=== PATIENT | female | born 1935 | race Caucasian/White ===

== ENCOUNTER 2018-06-24 11:04 | Outpatient (CLI) | payer MEDICARE ==
[~2018-06-24 11:04] MED LIST: ACET-812 PO; CARV3.12 PO; LACT1CAP73 PO; LEVO100T PO; LORA0.5T PO; OMEP20CA4 PO
== END 2018-06-24 23:59 | disposition home or self-care (01) ==
LOC: VAS 11:04
PROVIDERS: ATTEND Family Medicine
DX: M79.662 Pain in left lower leg (principal); M79.89 Other specified soft tissue disorders; I10 Essential (primary) hypertension; Z79.899 Other long term (current) drug therapy; Z87.891 Personal history of nicotine dependence; Z91.040 Latex allergy status; Z88.2 Allergy status to sulfonamides; Z90.710 Acquired absence of both cervix and uterus; Z96.653 Presence of artificial knee joint, bilateral
CPT/HCPCS: 93971

== ENCOUNTER 2020-08-09 15:15 | Outpatient (CLI) | payer MEDICARE | END 2020-08-09 23:59 | disposition home or self-care (01) | LOC: VAS 15:15 | PROVIDERS: ATTEND Family Medicine | DX: I82.452 Acute embolism and thrombosis of left peroneal vein (principal) | CPT/HCPCS: 93970 ==

== ENCOUNTER 2021-11-13 10:56 | Outpatient (CLI) | payer MEDICARE | END 2021-11-13 23:59 | disposition home or self-care (01) | LOC: VAS 10:56 | PROVIDERS: ATTEND Anesthesiology Pain Medicine | DX: S32.020A Wedge compression fracture of second lumbar vertebra, initial encounter for closed fracture (principal); M79.605 Pain in left leg; X58.XXXA Exposure to other specified factors, initial encounter; Y93.89 Activity, other specified; Y92.89 Other specified places as the place of occurrence of the external cause; Y99.8 Other external cause status; Z86.718 Personal history of other venous thrombosis and embolism; Z74.09 Other reduced mobility | CPT/HCPCS: 93970 ==

== ENCOUNTER 2022-10-16 08:34 | Emergency (ER) | payer MEDICARE ==
[~2022-10-16] VITALS: Ht 168.9 cm; Wt 76.6 kg
[2022-10-16 08:59] LABS: BASOPHILS % (AUTO) 0.3 % (0-1); EOSINOPHILS # (AUTO) 0.1 X10'3 (0-0.9); HEMATOCRIT 43.8 % (35.0-45.0); HEMOGLOBIN 14.3 g/dl (12.0-16.0); LYMPHOCYTES # (AUTO) 1.7 X10'3 (1.1-4.8); LYMPHOCYTES % (AUTO) 18.6 % (21-51); MEAN CORPUSCULAR HEMOGLOBIN 32.6 PG (27.0-31.0); MEAN CORPUSCULAR HGB CONC 32.5 g/dL (33.0-36.5); MEAN CORPUSCULAR VOLUME 100.1 FL (78-98); MEAN PLATELET VOLUME 7.3 FL (7.4-10.4); MONOCYTES # (AUTO) 0.7 X10'3 (0-0.9); MONOCYTES % (AUTO) 7.6 % (2-12); NEUTROPHILS # (AUTO) 6.4 X10'3 (1.8-7.7); NEUTROPHILS % (AUTO) 72.5 % (42-75); PLATELET COUNT 225 X10'3 (140-440); RED BLOOD COUNT 4.37 X10'6 (4.20-5.60); WHITE BLOOD COUNT 8.9 X10'3 (4.5-11.0)
[2022-10-16] MEDS ORDERED: normal saline 1000ML IV soln IV ONE (09:05)
[2022-10-16 09:35] LABS: ALANINE AMINOTRANSFERASE 16 U/L (12-78); ALKALINE PHOSPHATASE 59 IU/L (46-116); ASPARTATE AMINO TRANSFERASE 28 U/L (10-37); BILIRUBIN,TOTAL 0.6 MG/DL (0.1-1.0); BLOOD UREA NITROGEN 13 MG/DL (7-18); CALCIUM 9.1 MG/DL (8.5-10.1); CREATINE KINASE 207 U/L (26-192); CREATININE 0.93 MG/DL (0.40-0.90); ETHANOL < 0.010 GM/DL (0.0-0.010); GLUCOSE 145 MG/DL (70-104); TOTAL CARBON DIOXIDE 24.1 MMOL/L (24-32); eGFR 57 ML/MIN
[2022-10-16] MEDS ORDERED: metoprolol tartrate 1mg/ml inj IV ONE (09:55)
[2022-10-16] MEDS ORDERED: CefTRIAXone 2gm/D5W 50ml BAG 50 ML IV ONE (10:10)
[2022-10-16 10:26] LABS: CLARITY,URINE SLIGHTLY CLOUDY (Clear); COLOR,URINE STRAW (Yellow); GLUCOSE, URINE NEGATIVE (Neg); KETONES,URINE NEGATIVE (Neg); LEUKOCYTE ESTERASE ,URINE TRACE (Neg); NITRITES, URINE NEGATIVE (Neg); OCCULT BLOOD,URINE TRACE-INTACT (Neg); PROTEIN,URINE 30 mg/dl (Neg); UROBILINOGEN,URINE 0.2 E.U/dL (0.2-1.0)
[2022-10-16 10:37] LABS: UA COLLECTION TYPE STRAIGHT CATH
[2022-10-16 10:46] LABS: BACTERIA,URINE 3+ /HPF (Neg); SQUAMOUS EPITHELIAL CELL,UR NONE SEEN /LPF (FEW); WBC,URINE 0-4 /HPF (0-4)
[2022-10-16] MEDS ORDERED: acetaminophen 325mg tablet PO ONE (11:15)
[2022-10-16 11:33] LABS: ANION GAP 13 (8-16); CHLORIDE 89 MMOL/L (99-107); POTASSIUM 3.9 MMOL/L (3.5-5.1); SODIUM 126 MMOL/L (135-145)
[2022-10-16] MEDS ORDERED: ibuprofen tablet 400 MG TABLET PO ONE (12:10)
[2022-10-16] MEDS ORDERED: cloNIDine 0.1 mg tablet PO ONE (12:12)
[2022-10-16] MEDS ORDERED: ondansetron/PF 4mg/2ml inj IV ONE (12:30)
[2022-10-16] MEDS ORDERED: morphine 4 MG/ML inj SYRINge IV PRN (12:30)
[2022-10-16] MEDS ORDERED: tamsulosin 0.4mg capsule PO STA (15:14)
[2022-10-16 15:30] VITALS: BP 158/78
[2022-10-16] MEDS ORDERED: CEPH250T PO (16:39)
[2022-10-16] MEDS ORDERED: FLO0.4C PO (16:39)
[2022-10-16] MEDS ORDERED: ONDA4TAB12 PO (16:39)
[2022-10-16] MEDS ORDERED: TRAM50TA2 PO (16:39)
== END 2022-10-16 17:48 | disposition home or self-care (01) ==
LOC: ER 08:35
DX: N20.0 Calculus of kidney (principal); E86.0 Dehydration; R41.82 Altered mental status, unspecified; E87.20 Acidosis, unspecified; I10 Essential (primary) hypertension; Z98.890 Other specified postprocedural states; Z88.2 Allergy status to sulfonamides; Z91.040 Latex allergy status; Z79.2 Long term (current) use of antibiotics; Z79.899 Other long term (current) drug therapy; W19.XXXA Unspecified fall, initial encounter; Y93.89 Activity, other specified; Y92.89 Other specified places as the place of occurrence of the external cause; Y99.8 Other external cause status
CPT/HCPCS: 36415; 70450; 71045; 74176; 80053; 80320; 81001; 82550; 83605; 83880; 84145; 84484; 85025; 87040; 87088; 93005; 96361; 96365; 96375; 99285; J0696; J2270; J2405; J3490; J7030

== ENCOUNTER 2025-01-20 16:04 | Inpatient (IN) | payer MEDICARE ==
[~2025-01-20] VITALS: Ht 167.6 cm; Wt 51.2 kg
[~2025-01-20 16:04] MED LIST changes: +ASPI-1265 PO; +ATOR20TA66 PO; -CARV3.12 PO; +CARV6.253 PO; +HYDR25TA90 PO; +ONDA-243 PO; +TRAZ-251 PO
[2025-01-20 16:48] LABS: BASOPHILS # (AUTO) 0.1 X10'3 (0-0.2); BASOPHILS % (AUTO) 1.4 % (0-1); EOSINOPHILS # (AUTO) 0.3 X10'3 (0-0.9); EOSINOPHILS % (AUTO) 6.1 % (0-6); HEMATOCRIT 24.9 % (35.0-45.0); HEMOGLOBIN 8.2 g/dl (12.0-16.0); LYMPHOCYTES # (AUTO) 0.9 X10'3 (1.1-4.8); LYMPHOCYTES % (AUTO) 17.7 % (21-51); MEAN CORPUSCULAR HEMOGLOBIN 31.6 PG (27.0-31.0); MEAN CORPUSCULAR HGB CONC 33.1 g/dL (33.0-36.5); MEAN CORPUSCULAR VOLUME 95.4 FL (78-98); MEAN PLATELET VOLUME 7.3 FL (7.4-10.4); MONOCYTES # (AUTO) 0.6 X10'3 (0-0.9); MONOCYTES % (AUTO) 11.5 % (2-12); NEUTROPHILS # (AUTO) 3.2 X10'3 (1.8-7.7); NEUTROPHILS % (AUTO) 63.3 % (42-75); PLATELET COUNT 238 X10'3 (140-440); RED BLOOD COUNT 2.61 X10'6 (4.20-5.60); RED CELL DISTRIBUTION WIDTH 14.4 % (11.5-14.5)
[2025-01-20] MEDS: normal saline 1000ML IV soln IVB ONE (16:56)
[2025-01-20 17:07] LABS: ALANINE AMINOTRANSFERASE 16 U/L (12-78); ALBUMIN 2.6 G/DL (3.4-5.0); ALBUMIN/GLOBULIN RATIO 0.7 (1.1-1.5); ALKALINE PHOSPHATASE 76 IU/L (46-116); ANION GAP 4 (8-16); ASPARTATE AMINO TRANSFERASE 18 U/L (10-37); BILIRUBIN,TOTAL 0.3 MG/DL (0.1-1.0); BLOOD UREA NITROGEN 20 MG/DL (7-18); BUN/CREATININE RATIO 22.5 (10.0-20.0); CALCIUM 8.3 MG/DL (8.5-10.1); CHLORIDE 99 MMOL/L (99-107); CREATININE 0.89 MG/DL (0.40-0.90); GLUCOSE 97 MG/DL (70-104); POTASSIUM 4.5 MMOL/L (3.5-5.1); SODIUM 130 MMOL/L (135-145); TOTAL CARBON DIOXIDE 27.3 MMOL/L (24-32); TOTAL PROTEIN 6.6 G/DL (6.4-8.2); eCRCL 36 ML/MIN; eGFR 60 ML/MIN
[2025-01-20] MEDS ORDERED: ondansetron/PF 4mg/2ml inj IV PRN (18:05)
[2025-01-20] MEDS ORDERED: magnesium Cl slow-release 64mg tablet PO PRN (18:05)
[2025-01-20] MEDS ORDERED: mag hydrox/Alum hydrox/simeth 30ml oral suspension PO PRN (18:05)
[2025-01-20] MEDS ORDERED: potassium Cl 20 mEq SR tablet PO PRN ×2 (18:05)
[2025-01-20] MEDS ORDERED: magnesium sulf-water 2g/50mL 50 ML IV PRN (18:05)
[2025-01-20] MEDS ORDERED: acetaminophen 325mg tablet PO PRN (18:05)
[2025-01-20] MEDS ORDERED: potassium Cl 40MEQ/1/2NS 520ml 520 ML IV PRN (18:05)
[2025-01-20] MEDS ORDERED: magnesium sulf-water 4G/100mL 100 ML IV PRN (18:05)
[2025-01-20] MEDS: PERFLUTREN PROTEIN-A MICROSPHR (Optison) 0.22 MG/ML 3ML VIAL IV ONE (18:31)
[2025-01-20 18:58] LABS: RED BLOOD COUNT 2.42 X10'6 (4.20-5.60); RETICULOCYTE % (AUTO) 1.2 % (0.5-1.5)
[2025-01-20 19:08] LABS: MAGNESIUM 1.7 MG/DL (1.5-2.4); POTASSIUM 4.5 MMOL/L (3.5-5.1)
[2025-01-20 19:19] LABS: % IRON SATURATION 14 % (11-46); IRON 25 UG/DL (49-151); TOTAL IRON BINDING CAPACITY 173 UG/DL (259-388)
[2025-01-20 19:26] LABS: FERRITIN 266 NG/ML (8-252); LACTATE DEHYDROGENASE 143 U/L (81-234)
[2025-01-20 19:29] LABS: OSMOLALITY 282 MOSM/K (280-300)
[2025-01-20] MEDS: K and/or MAG REPLACEMENT MC SCH (20:00)
[2025-01-20] MEDS: carVEDilol 3.125mg tablet PO SCH (20:30)
[2025-01-20] MEDS: pantoprazole 40mg Tablet.DR PO SCH (20:30)
[2025-01-20] MEDS: docusate sod 100mg capsule PO SCH (20:30)
[2025-01-20 21:44] LABS: PRO BRAIN NATRIURETIC PEPTIDE 1930 PG/ML (0-450)
[2025-01-20] MEDS ORDERED: MAGN400O6 PO (21:48)
[2025-01-20] MEDS ORDERED: LEVO137T2 PO (21:48)
[2025-01-20] MEDS ORDERED: TRIA454O TOP (21:50)
[2025-01-20] MEDS ORDERED: SERT25TA84 PO (21:50)
[2025-01-20 23:16] VITALS: BP 148/62; PULSE 70; RESP 18; TEMP 97.9; O2SAT 96
[2025-01-21] MEDS: diphenhydrAMINE 25 MG/10 ML UD oral solution PO ONE (00:33)
[2025-01-21 02:21] LABS: BILIRUBIN,URINE NEGATIVE (Neg); COLOR,URINE YELLOW (Yellow); GLUCOSE, URINE NEGATIVE (Neg); KETONES,URINE NEGATIVE (Neg); LEUKOCYTE ESTERASE ,URINE SMALL (Neg); NITRITES, URINE NEGATIVE (Neg); OCCULT BLOOD,URINE NEGATIVE (Neg); PROTEIN,URINE NEGATIVE (Neg); UROBILINOGEN,URINE 0.2 E.U/dL (0.2-1.0)
[2025-01-21 02:30] LABS: UA COLLECTION TYPE VOIDED
[2025-01-21 02:31] LABS: CLARITY,URINE SLIGHTLY CLOUDY (Clear)
[2025-01-21 02:35] LABS: BACTERIA,URINE FEW /HPF (Neg); RBC,URINE NONE SEEN /HPF (0-2); SQUAMOUS EPITHELIAL CELL,UR FEW /LPF (FEW)
[2025-01-21 02:50] LABS: OSMOLALITY UA 333.5 MOSM/K (50-1400)
[2025-01-21] MEDS: magnesium hydroxide 30ml (MOM) UD suspension PO PRN (05:30)
[2025-01-21 06:31] VITALS: BP 160/64; PULSE 62; RESP 16; TEMP 97.9; O2SAT 96
[2025-01-21 06:50] LABS: BASOPHILS # (AUTO) 0.1 X10'3 (0-0.2); BASOPHILS % (AUTO) 1.3 % (0-1); EOSINOPHILS # (AUTO) 0.3 X10'3 (0-0.9); EOSINOPHILS % (AUTO) 5.5 % (0-6); HEMATOCRIT 22.3 % (35.0-45.0); HEMOGLOBIN 7.6 g/dl (12.0-16.0); LYMPHOCYTES # (AUTO) 1.2 X10'3 (1.1-4.8); LYMPHOCYTES % (AUTO) 21.2 % (21-51); MEAN CORPUSCULAR HEMOGLOBIN 32.2 PG (27.0-31.0); MEAN CORPUSCULAR HGB CONC 34.2 g/dL (33.0-36.5); MEAN CORPUSCULAR VOLUME 94.1 FL (78-98); MEAN PLATELET VOLUME 7.3 FL (7.4-10.4); MONOCYTES # (AUTO) 0.7 X10'3 (0-0.9); MONOCYTES % (AUTO) 12.5 % (2-12); NEUTROPHILS # (AUTO) 3.4 X10'3 (1.8-7.7); NEUTROPHILS % (AUTO) 59.5 % (42-75); PLATELET COUNT 209 X10'3 (140-440); RED BLOOD COUNT 2.37 X10'6 (4.20-5.60); RED CELL DISTRIBUTION WIDTH 14.3 % (11.5-14.5); WHITE BLOOD COUNT 5.6 X10'3 (4.5-11.0)
[2025-01-21 07:17] LABS: ALANINE AMINOTRANSFERASE 17 U/L (12-78); ALBUMIN 2.4 G/DL (3.4-5.0); ALBUMIN/GLOBULIN RATIO 0.6 (1.1-1.5); ALKALINE PHOSPHATASE 53 IU/L (46-116); ANION GAP 7 (8-16); ASPARTATE AMINO TRANSFERASE 16 U/L (10-37); BILIRUBIN,TOTAL 0.6 MG/DL (0.1-1.0); BLOOD UREA NITROGEN 15 MG/DL (7-18); BUN/CREATININE RATIO 18.1 (10.0-20.0); CALCIUM 8.3 MG/DL (8.5-10.1); CHLORIDE 102 MMOL/L (99-107); CREATININE 0.83 MG/DL (0.40-0.90); GLUCOSE 84 MG/DL (70-104); MAGNESIUM 1.7 MG/DL (1.5-2.4); POTASSIUM 4.2 MMOL/L (3.5-5.1); SODIUM 133 MMOL/L (135-145); THYROID STIMULATING HORMONE 0.18 ulU/ml (0.34-4.50); TOTAL CARBON DIOXIDE 24.5 MMOL/L (24-32); TOTAL PROTEIN 6.1 G/DL (6.4-8.2); eCRCL 39 ML/MIN; eGFR 65 ML/MIN
[2025-01-21] MEDS: levoTHYROXINE 100mcg tablet PO SCH (07:45)
[2025-01-21 08:00] VITALS: RESP 14; O2SAT 96
[2025-01-21] MEDS ORDERED: iron dextran complex inj. 25 MG in normal saline 50ml IV soln 49.5 ML IV ONE (08:10)
[2025-01-21] MEDS: hydrALAZINE 20mg/ml inj. IV ONE (08:37)
[2025-01-21] MEDS: iron dextran complex inj. 25 MG in normal saline 100ml IV soln 100 ML IV ONE (09:39)
[2025-01-21 10:30] VITALS: BP 131/55; PULSE 60; RESP 15; TEMP 97.6; O2SAT 97
[2025-01-21] MEDS: NORMAL SALINE IV ONE (10:55)
[2025-01-21] MEDS: IRON DEXTRAN COMPLEX IV ONE (10:55)
[2025-01-21] MEDS: hyDRALAzine 10mg tablet PO SCH (16:55)
[2025-01-21] MEDS: lactose-reduced food (Ensure Enlive) - 237ml bottle PO SCH (17:34)
[2025-01-21 18:00] VITALS: BP 137/55; PULSE 66; RESP 15; TEMP 97.7; O2SAT 99
[2025-01-21 20:00] VITALS: RESP 15; O2SAT 99
[2025-01-21] MEDS: carvedilol 6.25mg tablet PO SCH (20:19)
[2025-01-21] MEDS: atorvastatin 20mg tablet PO SCH (20:19)
[2025-01-21 22:00] VITALS: BP 134/57; PULSE 80; RESP 19; TEMP 98.3; O2SAT 95
[2025-01-22 06:00] VITALS: BP 138/51; PULSE 72; RESP 16; TEMP 98.3; O2SAT 96
[2025-01-22 06:21] LABS: BASOPHILS # (AUTO) 0.1 X10'3 (0-0.2); BASOPHILS % (AUTO) 1.2 % (0-1); EOSINOPHILS # (AUTO) 0.3 X10'3 (0-0.9); EOSINOPHILS % (AUTO) 5.3 % (0-6); HEMATOCRIT 23.3 % (35.0-45.0); HEMOGLOBIN 7.8 g/dl (12.0-16.0); LYMPHOCYTES # (AUTO) 1.3 X10'3 (1.1-4.8); LYMPHOCYTES % (AUTO) 22.7 % (21-51); MEAN CORPUSCULAR HEMOGLOBIN 32.6 PG (27.0-31.0); MEAN CORPUSCULAR HGB CONC 33.6 g/dL (33.0-36.5); MEAN CORPUSCULAR VOLUME 97.1 FL (78-98); MEAN PLATELET VOLUME 7.8 FL (7.4-10.4); MONOCYTES # (AUTO) 0.7 X10'3 (0-0.9); MONOCYTES % (AUTO) 11.6 % (2-12); NEUTROPHILS # (AUTO) 3.3 X10'3 (1.8-7.7); NEUTROPHILS % (AUTO) 59.2 % (42-75); PLATELET COUNT 217 X10'3 (140-440); RED CELL DISTRIBUTION WIDTH 14.7 % (11.5-14.5); WHITE BLOOD COUNT 5.6 X10'3 (4.5-11.0)
[2025-01-22 06:28] LABS: ALANINE AMINOTRANSFERASE 15 U/L (12-78); ALBUMIN 2.5 G/DL (3.4-5.0); ALBUMIN/GLOBULIN RATIO 0.7 (1.1-1.5); ALKALINE PHOSPHATASE 54 IU/L (46-116); ANION GAP 5 (8-16); ASPARTATE AMINO TRANSFERASE 19 U/L (10-37); BILIRUBIN,TOTAL 0.5 MG/DL (0.1-1.0); BLOOD UREA NITROGEN 19 MG/DL (7-18); BUN/CREATININE RATIO 21.1 (10.0-20.0); CALCIUM 8.2 MG/DL (8.5-10.1); CHLORIDE 99 MMOL/L (99-107); GLUCOSE 90 MG/DL (70-104); MAGNESIUM 1.9 MG/DL (1.5-2.4); POTASSIUM 4.3 MMOL/L (3.5-5.1); SODIUM 129 MMOL/L (135-145); TOTAL CARBON DIOXIDE 25.5 MMOL/L (24-32); eCRCL 36 ML/MIN; eGFR 59 ML/MIN
[2025-01-22] MEDS ORDERED: FER325T PO (07:32)
[2025-01-22] MEDS ORDERED: PANT40TA54 PO (07:32)
[2025-01-22] MEDS ORDERED: LEVO112T5 PO (07:32)
[2025-01-22] MEDS: levoTHYROXINE 112mcg tablet PO SCH (07:46)
[2025-01-22] MEDS: normal saline 1000ml 1,000 ML IV SCH (07:49)
[2025-01-22] MEDS: sertraline 25mg tablet PO SCH (07:49)
[2025-01-22 08:08] VITALS: RESP 15; O2SAT 99
[2025-01-22 09:50] LABS: ALBUMIN 2.3 G/DL (3.4-5.0); ANION GAP 6 (8-16); BLOOD UREA NITROGEN 18 MG/DL (7-18); BUN/CREATININE RATIO 18.6 (10.0-20.0); CALCIUM 7.9 MG/DL (8.5-10.1); CHLORIDE 98 MMOL/L (99-107); CREATININE 0.97 MG/DL (0.40-0.90); GLUCOSE 95 MG/DL (70-104); SODIUM 129 MMOL/L (135-145); TOTAL CARBON DIOXIDE 25.3 MMOL/L (24-32); eCRCL 33 ML/MIN; eGFR 54 ML/MIN
[2025-01-22 10:00] VITALS: BP 130/55; PULSE 65; RESP 16; TEMP 97.6; O2SAT 98
[2025-01-22] MEDS ORDERED: iron dextran complex inj. 100 MG in normal saline 100ml IV soln 100 ML IV SCH (10:00)
[2025-01-22 11:13] LABS: THYROXINE (T4) 9.8 ug/dL (4.5-12.0)
[2025-01-22 11:13] LABS: HAPTOGLOBIN 128 mg/dL (41-333)
[2025-01-22] MEDS: iron dextran complex inj. 100 MG in normal saline 100ml IV soln 100 ML IV SCH (12:16)
[2025-01-22] MEDS: normal saline 500ml IV soln 500 ML IV ONE (12:20)
[2025-01-24] MEDS ORDERED: ferrous sulfate 325mg tablet PO SCH (08:00)
[2025-01-25 12:41] LABS: OCCULT BLOOD STOOL NEGATIVE (Neg)
== END 2025-01-22 14:50 | disposition home or self-care (01) | DRG 811 ==
LOC: ER 16:04 → ED HOLD 18:11 → ORTHO 4S 23:15
PROVIDERS: ADMIT Nurse Practitioner Family; ATTEND Nurse Practitioner Family
DX: D50.8 Other iron deficiency anemias (principal); E43 Unspecified severe protein-calorie malnutrition; E87.1 Hypo-osmolality and hyponatremia; Z68.1 Body mass index [BMI] 19.9 or less, adult; I50.32 Chronic diastolic (congestive) heart failure; Z66 Do not resuscitate; I11.0 Hypertensive heart disease with heart failure; K21.9 Gastro-esophageal reflux disease without esophagitis; E88.09 Other disorders of plasma-protein metabolism, not elsewhere classified; E78.00 Pure hypercholesterolemia, unspecified; E03.9 Hypothyroidism, unspecified; R62.7 Adult failure to thrive; Z88.2 Allergy status to sulfonamides; Z91.040 Latex allergy status; Z79.82 Long term (current) use of aspirin; Z79.899 Other long term (current) drug therapy; Z86.73 Personal history of transient ischemic attack (TIA), and cerebral infarction without residual deficits; Z87.442 Personal history of urinary calculi
CPT/HCPCS: 36415; 80048; 80053; 81001; 82272; 82607; 82728; 82948; 83010; 83540; 83550; 83615; 83735; 83880; 83930; 83935; 84132; 84295; 84300; 84436; 84443; 84480; 85025; 85045; 86885; 86900; 86901; 87081; 87088; 96360; 97161; 97530; 99285; G0378; J0360; J1750; J7030; Q0163